=== PATIENT | female | born 2000 | race Caucasian/White ===

== ENCOUNTER 2019-07-26 02:50 | Outpatient (CLI) | payer OTHER ==
[2019-07-26 03:23] LABS: APPEARANCE,URINE CLOUDY; BILIRUBIN,URINE NEGATIVE (NEGATIVE); COLOR,URINE YELLOW; GLUCOSE, URINE NEGATIVE (NEGATIVE); KETONES,URINE NEGATIVE (NEGATIVE); LEUKOCYTE ESTERASE,URINE LARGE (NEGATIVE); NITRITE,URINE NEGATIVE (NEGATIVE); PROTEIN,URINE NEGATIVE (NEGATIVE); URINE SPECIFIC GRAVITY 1.016; UROBILINOGEN,URINE NEGATIVE mg/dL (<2.0)
[2019-07-26 03:36] LABS: URINE AMPHETAMINES SCREEN NEGATIVE; URINE BARBITURATES SCREEN NEGATIVE; URINE BENZODIAZEPINES SCREEN NEGATIVE; URINE COCAINE SCREEN NEGATIVE; URINE MARIJUANA (THC) SCREEN NEGATIVE; URINE METHADONE SCREEN NEGATIVE; URINE PHENCYCLIDINE SCREEN NEGATIVE
== END 2019-07-26 03:52 | disposition home or self-care (01) ==
LOC: LC 02:50
PROVIDERS: ATTEND Obstetrics & Gynecology
DX: Z34.93 Encounter for supervision of normal pregnancy, unspecified, third trimester (principal); Z3A.37 37 weeks gestation of pregnancy
CPT/HCPCS: 59025; 80307; 81005; 84112

== ENCOUNTER 2019-08-01 04:14 | Outpatient (CLI) | payer OTHER ==
[2019-08-01 05:23] LABS: APPEARANCE,URINE TURBID; BILIRUBIN,URINE NEGATIVE (NEGATIVE); COLOR,URINE YELLOW; GLUCOSE, URINE NEGATIVE (NEGATIVE); KETONES,URINE NEGATIVE (NEGATIVE); LEUKOCYTE ESTERASE,URINE LARGE (NEGATIVE); NITRITE,URINE NEGATIVE (NEGATIVE); PROTEIN,URINE 30 mg/dL (NEGATIVE); URINE SPECIFIC GRAVITY 1.012; UROBILINOGEN,URINE NEGATIVE mg/dL (<2.0)
[2019-08-01 05:39] LABS: URINE AMPHETAMINES SCREEN NEGATIVE; URINE BARBITURATES SCREEN NEGATIVE; URINE BENZODIAZEPINES SCREEN NEGATIVE; URINE COCAINE SCREEN NEGATIVE; URINE MARIJUANA (THC) SCREEN NEGATIVE; URINE METHADONE SCREEN NEGATIVE; URINE PHENCYCLIDINE SCREEN NEGATIVE
[2019-08-01] MEDS ORDERED: CEFTRIAXONE INJ 1000 MG VIAL ONE (06:09)
[2019-08-01] MEDS ORDERED: LIDOCAINE 1% INJ-PF (10 MG/ML) 30 ML SDV ONE (06:10)
--- NOTE | 2019-08-01 06:40 | Non Stress Test Report ---
Non Stress Test Datetime Report Generated by CPN: 08/01/2019 06:40 DEMOGRAPHIC EGA NST: 37.6 INDICATION Indication for Study (NST) Other: Labor check MONITORING Monitor Explained: Monitor Explained; Test Explained; Patient Verbalized Understanding Time on Monitor: 08/01/2019 04:50 Time off Monitor: 08/01/2019 06:15 NST Duration: 85 NST INTERVENTIONS NST Interventions: PO Hydration Physician Notified NST: Dr. Hackett BABY A Movement : Present Contraction Frequency : 1-2 FHR Baseline : 140 Accelerations : 15X15 Decelerations : None Variability : Moderate 6-25bpm NST Review: Meets Criteria for Reactive NST NST Review and Verified By : ZAC Bales NST Results: Reactive NST REPORT Report Trigger: Send Report
== END 2019-08-01 06:33 | disposition home or self-care (01) ==
LOC: LC 04:14
PROVIDERS: ATTEND Obstetrics & Gynecology
DX: O47.1 False labor at or after 37 completed weeks of gestation (principal); Z3A.37 37 weeks gestation of pregnancy
CPT/HCPCS: 59025; 81005; 80307; J3490; J0696

== ENCOUNTER 2019-08-01 08:34 | Outpatient (CLI) | payer OTHER ==
[2019-08-01] MEDS ORDERED: HYDROXYZINE PAMOATE 50 MG CAPSULE PO ONE (09:30)
[2019-08-01] MEDS ORDERED: HYDROXYZINE PAMOATE 50 MG CAPSULE ONE (09:37)
--- NOTE | 2019-08-01 09:49 | Non Stress Test Report ---
Non Stress Test Datetime Report Generated by CPN: 08/01/2019 09:48 DEMOGRAPHIC EGA NST: 37.6 INDICATION Indication for Study (NST) Other: Provider Order VITAL SIGNS Temperature - NST: 97.2 Pulse - NST: 70 RESP - NST: 18 NBPSYS NST: 107 NBPDIA NST: 55 MONITORING Time on Monitor: 08/01/2019 08:46 Time off Monitor: 08/01/2019 09:29 NST Duration: 43 NST INTERVENTIONS NST Interventions: None Physician Notified NST: NRobertson,CNM BABY A Movement : Present Contraction Frequency : Irregular FHR Baseline : 135 Accelerations : 15X15 Decelerations : None Variability : Moderate 6-25bpm NST Review: Meets Criteria for Reactive NST NST Review and Verified By : [place] NST Results: Reactive NST REPORT Report Trigger: Send Report
== END 2019-08-01 09:42 | disposition home or self-care (01) ==
LOC: LC 08:34
PROVIDERS: ATTEND Student in an Organized Health Care Education/Training Program
DX: O47.1 False labor at or after 37 completed weeks of gestation (principal); Z3A.37 37 weeks gestation of pregnancy
CPT/HCPCS: 59025

== ENCOUNTER 2019-08-04 22:21 | Inpatient (IN) | payer OTHER ==
[2019-08-04 22:48] LABS: APPEARANCE,URINE CLOUDY; BILIRUBIN,URINE NEGATIVE (NEGATIVE); COLOR,URINE YELLOW; GLUCOSE, URINE NEGATIVE (NEGATIVE); KETONES,URINE NEGATIVE (NEGATIVE); LEUKOCYTE ESTERASE,URINE LARGE (NEGATIVE); NITRITE,URINE NEGATIVE (NEGATIVE); PROTEIN,URINE 30 mg/dL (NEGATIVE); URINE SPECIFIC GRAVITY 1.011; UROBILINOGEN,URINE NEGATIVE mg/dL (<2.0)
[2019-08-04 23:10] LABS: URINE AMPHETAMINES SCREEN NEGATIVE; URINE BARBITURATES SCREEN NEGATIVE; URINE BENZODIAZEPINES SCREEN NEGATIVE; URINE COCAINE SCREEN NEGATIVE; URINE MARIJUANA (THC) SCREEN NEGATIVE; URINE METHADONE SCREEN NEGATIVE; URINE PHENCYCLIDINE SCREEN NEGATIVE
[2019-08-04] MEDS ORDERED: RINGERS SOLUTION,LACTATED 1,000 ML IV PRN (23:54)
[2019-08-05 00:24] LABS: ABSOLUTE BASOPHILS # (AUTO) 0.1 10^3/uL (0.0-0.2); ABSOLUTE EOSINOPHILS # (AUTO) 0.1 10^3/uL (0.0-0.6); ABSOLUTE MONOCYTES (AUTO) 0.7 10^3/uL (0.1-1.4); ABSOLUTE NEUT (AUTO) 11.8 10^3/uL (1.7-8.2); BASOPHILS % (AUTO) 0.4 % (0-2); EOSINOPHILS % (AUTO) 0.4 % (0-6); HEMATOCRIT 35.8 % (36.0-47.0); HEMOGLOBIN 11.9 g/dL (12.0-15.5); LYMPHOCYTES % (AUTO) 13.6 % (13-45); MEAN CORPUSCULAR HEMOGLOBIN 27.9 pg (27.0-33.4); MEAN CORPUSCULAR HGB CONC 33.1 g/dL (32.0-36.0); MEAN CORPUSCULAR VOLUME 84 fl (80-97); MONOCYTES % (AUTO) 4.6 % (3-13); PLATELET COUNT 193 10^3/uL (150-450); RED BLOOD COUNT 4.24 10^6/uL (3.72-5.28); RED CELL DISTRIBUTION WIDTH 14.3 % (11.5-14.0); TOTAL CELLS COUNTED % (AUTO) 100 %; WHITE BLOOD COUNT 14.6 10^3/uL (4.0-10.5)
[2019-08-05] MEDS ORDERED: RINGERS SOLUTION,LACTATED 1,000 ML IV ONE (00:30)
[2019-08-05] MEDS ORDERED: BUPIVACAINE HCL 0.25 % INJ/PF (2.5 MG/1 ML) 30 ML VIAL ONE (00:58)
[2019-08-05] MEDS ORDERED: EPHEDRINE SULFATE INJ 50 MG/1 ML AMPULE ONE (00:58)
[2019-08-05] MEDS ORDERED: FENTANYL/BUPIVACAINE/NS/PF 300 MCG/150 ML RTUINJ EPI ONE (00:58)
--- NOTE | 2019-08-05 01:07 | Admission Physical ---
Datetime Report Generated by CPN: 08/05/2019 01:07 CURRENT ADMISSION Chief Complaint: Uterine Contractions Indication for Induction: Not Applicable Admit Impression : Term, Intrauterine ; Active Labor Admit Plan: Admit to Unit; Initiate Labor Protocol ALLERGIES Medication Allergies: No Medication Allergies: No Known Allergies (08/01/2019) Latex: No Latex Allergies OBSTETRICAL HISTORY EDC: 08/16/2019 00:00 : 3 Para: 1 Livin Gestational Diabetes: No Rh Sensitization: No Incompetent Cervix: No TAE: No Infertility: No ART Treatment: No Uterine Anomaly: No IUGR: No Hx Previous C/S: No Macrosomia: No Hx Loss/Stillborn: No PIH: No Hx : No Placenta Previa/Abruption: No Depression/PP Depression: No PTL/PROM: No Post Hemorrhage: No Current Procedures: Ultrasound; NST Obstetrical History Comments: G1- SAB G2- at 37 weeks G3- current SEE RECORDS Alcohol: No Marijuana : No Cocaine: No Other Illicit Drugs: No Cigarettes: Never Smoker. 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 Surgery: No Heart Disease: No Hosp/Surgery: No Autoimmune Disorder: No Anesthetic Complications: No Kidney Disease: No Abnormal Pap Smear: No Neuro/Epilepsy: No Psychiatric Disorders: No Other Medical Diseases: No Hepatitis/Liver Disease: No Significant Family History: No Varicosities/Phlebitis: No Trauma/Violence : No Thyroid Dysfunction: No INFECTIOUS HISTORY Gonorrhea: No Genital Herpes: No Chlamydia: No Tuberculosis: No Syphilis: No Hepatitis: No HIV/AIDS Exposure: No Rash or Viral Illness: No HPV: No PHYSICAL EXAM General: Normal HEENT: Normal Neurologic: Normal Thyroid: Normal Heart: Normal Lungs: Normal Breast: Deferred Back: Normal Abdomen: Normal Genitourinary Exam: Normal Extremities: Normal DTRs: Normal Pelvic Type: Adequate Vital Signs: Reviewed VAGINAL EXAM Dilatation: 4 Effacement: 80 Station: -2 MEMBRANES Pooling: Negative Membranes: Intact FETUS A EGA: 38.3 Monitoring: External US FHR- Baseline: 140 Variability: Moderate 6-25bpm FHR Category: Category I Presentation: Vertex Admit Comment: Admit for labor PLANS FOR LABOR AND DELIVERY Labor and Delivery: None Pain Management: Epidural INFORMED CONSENT Signature: with User ID: [email or web address]
[2019-08-05] MEDS ORDERED: FENTANYL CITRATE INJ/PF 100 MCG/2 ML AMPUL ONE (01:45)
[2019-08-05] MEDS ORDERED: LIDOCAINE 1% INJ-PF (10 MG/ML) 30 ML SDV ONE (02:26)
[2019-08-05] MEDS ORDERED: OXYTOCIN 10 UNIT/ML VIAL ONE (02:26)
[2019-08-05] MEDS ORDERED: MISOPROSTOL 0.2 MG TABLET ONE (02:26)
[2019-08-05] MEDS ORDERED: OXYTOCIN/0.9 % SODIUM CHLORIDE 30 UNIT/500 ML RTUINJ ONE (02:27)
[2019-08-05] MEDS ORDERED: DIBUCAINE 1% OINTMENT 28 GM TP PRN (02:57)
[2019-08-05] MEDS ORDERED: DIPHENHYDRAMINE HCL 25 MG CAPSULE PO PRN (02:57)
[2019-08-05] MEDS ORDERED: DIPH/PERTUSS(ACELL)/TETANUS VAC/PF 0.5 ML SYR (>=10YO) IM PRN (02:57)
[2019-08-05] MEDS ORDERED: BENZOCAINE/MENTHOL AEROSOL SPRAY 56 ML TOP PRN (02:57)
[2019-08-05] MEDS ORDERED: GLYCERIN/WITCH HAZEL LEAF 1 EACH MED..WIPE TP PRN (02:57)
[2019-08-05] MEDS ORDERED: OXYTOCIN/0.9 % SODIUM CHLORIDE 30 UNIT/500 ML RTUINJ IV PRN (02:57)
[2019-08-05] MEDS ORDERED: ACETAMINOPHEN 650 MG SUPP.RECT PR PRN (02:57)
[2019-08-05] MEDS ORDERED: PSEUDOEPHEDRINE HCL 30 MG TABLET PO PRN (02:57)
[2019-08-05] MEDS ORDERED: PROMETHAZINE HCL INJ 25 MG/1 ML VIAL IV PRN (02:57)
[2019-08-05] MEDS ORDERED: PROMETHAZINE HCL 25 MG TABLET PO PRN (02:57)
[2019-08-05] MEDS ORDERED: MEASLES,MUMPS&RUBELLA VACC/PF 0.5 ML VIAL SUBCUT PRN (02:57)
[2019-08-05] MEDS ORDERED: ACETAMINOPHEN WITH CODEINE #3 TABLET PO PRN ×2 (02:57)
[2019-08-05] MEDS ORDERED: MAGNESIUM HYDROXIDE SUSP 30 ML UDCUP PO PRN (02:57)
[2019-08-05] MEDS ORDERED: NA PHOS,M-B/NA PHOS,DI-BA (ADULT) 133 ML ENEMA PR PRN (02:57)
[2019-08-05] MEDS ORDERED: ZOLPIDEM TARTRATE 5 MG TABLET PO PRN (02:57)
[2019-08-05] MEDS ORDERED: PROMETHAZINE HCL 25 MG SUPP.RECT PR PRN (02:57)
--- NOTE | 2019-08-05 03:26 | Warning Signs in Babies ---
VOD Warning Signs Datetime Report Generated by [facility]: 08/05/2019 03:26 VOD#[id number] -Warning Signs in Babies: Viewed with Parent(s)/Family (07/26/2019 02:56:MACKENZIE Barrientos)
--- NOTE | 2019-08-05 05:23 | Delivery Summary ---
Del Sum A-C Datetime Report Generated by CPN: 08/05/2019 05:23 DELIVERY PERSONNEL DELIVERY PERSONNEL: [id number] Delivery Doctor:: Mary Tejada CNM Labor and Delivery Nurse:: Izabela Cainbarbarageo, MACKENZIE MATERNAL INFORMATION Delivery Anesthesia: Epidural Medications After Delivery: Pitocin 30 Units in 500ml NS/D5W Estimated Blood Loss (ml): 100 Delivery QBL: 101 Maternal Complications: None Provider Comments: AROM clear fluid, started pushing, viable male from OA to LAURENCE over intact perineum, baby placed on mothers abdomen, cord clamped and cut by father, cord blood to lab Spont delivery of grossly nl intact placenta, 3 VS, no lacerations Baby and mom remain in recovery in stable condition FFFM, massage and Pitocin ZDr. Martinez on unit and aware of delivery and pt status LABOR SUMMARY EDC: 08/16/2019 00:00 No. Babies in Womb: 1 Attempted: No Labor Anesthesia: Epidural LABOR INFORMATION Reason for Induction: Not Applicable Onset of Labor: 08/04/2019 23:50 Complete Dilatation: 08/05/2019 02:30 Oxytocin: N/A Group B Beta Strep: negative Antibiotics # of Doses: 0 Antibiotics Time of Last Dose: 0 Name of Antibiotic Given: 0 Steroids Given: None Reason Steroids Not Administered: Not Applicable MEMBRANES Membranes Rupture Method: Artificial Rupture of Membranes: 08/05/2019 02:30 Length of Rupture (hr): 0.50 Amniotic Fluid Color: Clear Amniotic Fluid Amount: Small Amniotic Fluid Odor: None STAGES OF LABOR Stage 1 hr: 2 Stage 1 min: 40 Stage 2 hr: 0 Stage 2 min: 30 Stage 3 hr: 0 Stage 3 min: 9 Total Time in Labor hr: 3 Total Time in Labor min: 19 VAGINAL DELIVERY Episiotomy: None Laceration #1: None Laceration Extension #1: N/A Laceration Repair: Not Applicable Sponge Count Correct: N/A Sharps Count Correct: N/A BABY A INFORMATION Infant Delivery Date/Time: 08/05/2019 03:00 Method of Delivery: Vaginal Nurse Controlled Delivery: No Born in Route : No : N/A Forceps: N/A Vacuum Extraction: N/A Shoulder Dystocia : No PRESENTATION/POSITION BABY A Presentation: Cephalic Cephalic Presentation: Vertex Vertex Position: Right Occipital Anterior Breech Presentation: N/A PLACENTA INFORMATION BABY A Placenta Delivery Time : 08/05/2019 03:09 Placenta Method of Delivery: Spontaneous Placenta Status: Delivered SCORES BABY A Heart Rate 1 min: >100 bpm Resp Effort 1 min: Good Cry Reflex Irritability 1 min: Cough or Sneeze or Pulls Away Muscle Tone 1 min: Active Motion Color 1 min: Body [place], Extremities Blue Resuscitation Effort 1 min: Tactile Stimulation SCORE 1 MIN: 9 Heart Rate 5 min: >100 bpm Resp Effort 5 min: Good Cry Reflex Irritability 5 min: Cough or Sneeze or Pulls Away Muscle Tone 5 min: Active Motion Color 5 min: Body [place], Extremities Blue Resuscitation Effort 5 min: Tactile Stimulation SCORE 5 MIN: 9 INFORMATION BABY A Gestational Age at Delivery: 38.3 Gestational Status: Early Term- 37- 38.6 Weeks Infant Outcome : Liveborn Infant Condition : Stable Infant Sex: Male IDENTIFICATION BABY A Infant Verification Date/Time: 08/05/2019 03:31 ID Band Number: [id number] Mother's Name Verified: Yes Infant RN Verifying : Corinne ZAC Butler Additional Verifying Personnel: Corinne Platt RN CORD INFORMATION BABY A No. Cord Vessels: 3 Nuchal Cord : N/A Cord Blood Taken: Yes-For Eval (Mom's Blood Type - or O+) Infant Suction: None ASSESSMENT BABY A Complications: None Physical Findings at Delivery: Within Normal Limits Respirations: Appears Normal Skin to Skin: Yes Skin to Skin Time (min): 30 Rn Womens Health/ALS Called : No Care By: Tyrell Ambriz RN Transferred To: Remains with Mother BABY B INFORMATION : N/A
[2019-08-05] MEDS: IBUPROFEN 800 MG TABLET PO SCH ×3 (06:08→22:00)
[2019-08-05] MEDS: DOCUSATE SODIUM 100 MG CAPSULE PO SCH ×2 (09:22→18:08)
[2019-08-05] MEDS: PRENATAL VITAMIN W DHA CAPSULE PO SCH (09:22)
[2019-08-05] MEDS: FAMOTIDINE 20 MG TABLET PO SCH ×2 (09:22→22:01)
[2019-08-05] MEDS: FERROUS SULFATE 325 MG TABLET PO SCH ×2 (09:22→18:08)
[2019-08-05] MEDS: SENNOSIDES/DOCUSATE 8.6-50 MG 1 EACH TABLET PO SCH (09:22)
[2019-08-06] MEDS: IBUPROFEN 800 MG TABLET PO SCH ×3 (07:34→21:41)
[2019-08-06 07:59] LABS: HEMATOCRIT 32.7 % (36.0-47.0); HEMOGLOBIN 11.1 g/dL (12.0-15.5); MEAN CORPUSCULAR HEMOGLOBIN 28.7 pg (27.0-33.4); MEAN CORPUSCULAR VOLUME 85 fl (80-97); PLATELET COUNT 174 10^3/uL (150-450); RED BLOOD COUNT 3.87 10^6/uL (3.72-5.28); RED CELL DISTRIBUTION WIDTH 14.2 % (11.5-14.0); WHITE BLOOD COUNT 10.4 10^3/uL (4.0-10.5)
[2019-08-06] MEDS: FERROUS SULFATE 325 MG TABLET PO SCH ×2 (10:37→17:44)
[2019-08-06] MEDS: PRENATAL VITAMIN W DHA CAPSULE PO SCH (10:37)
[2019-08-06] MEDS: DOCUSATE SODIUM 100 MG CAPSULE PO SCH ×2 (10:37→17:45)
[2019-08-06] MEDS: SENNOSIDES/DOCUSATE 8.6-50 MG 1 EACH TABLET PO SCH (10:37)
[2019-08-06] MEDS: FAMOTIDINE 20 MG TABLET PO SCH ×2 (10:37→21:41)
--- NOTE | 2019-08-06 10:44 | PDOC PROGRESS REPORT ---
Subjective-OB Progress Note for:: 08/06/19 Physical Exam (OB) Vital Signs: Temp Pulse Resp BP Pulse Ox 97.6 F 67 18 130/81 H 98 08/06/19 08:00 08/06/19 08:00 08/06/19 08:00 08/06/19 08:00 08/06/19 08:00 Intake & Output 08/05/19 08/06/19 08/07/19 06:59 06:59 06:59 Intake Total 680 Balance 680 Weight 70.3 kg - PIH/Pre-Eclampsia DTR's: 2 + Clonus: Negative Headache: Absent Epigastric Pain: No Visual Changes: No - Lochia Lochia Amount: Scant < 10 ml Lochia Color: Rubra/Red - Abdomen Description: Soft, Round Hernia Present: No Bowel Sounds: Normoactive Flatus Presence: Present Stool: Yes Fundal Description: Firm, Midline Fundal Height: u/u - u/2 Objective-Diagnostic Laboratory: 08/06/19 07:30 08/06/19 07:30 WBC 10.4 RBC 3.87 Hgb 11.1 L Hct 32.7 L MCV 85 MCH 28.7 MCHC 34.0 RDW 14.2 H Plt Count 174
[2019-08-07] MEDS: IBUPROFEN 800 MG TABLET PO SCH (05:06)
[2019-08-07 08:00] VITALS: BP 128/82
--- NOTE | 2019-08-07 09:32 | PDOC DISCHARGE SUMMARY ---
Impression - Admit/DC Date/PCP Admission Date/Primary Care Provider: 08/04/19 23:55 ROHIT MAR MD Discharge Date: 08/07/19 - Discharge Diagnosis (1) Normal course Is this a current diagnosis for this admission?: Yes (2) Delivery normal Is this a current diagnosis for this admission?: Yes (3) Is this a current diagnosis for this admission?: Yes - Additional Information Resuscitation Status: Full Code Discharge Diet: Regular Discharge Activity: Balance Activity w/Rest, Pelvic Rest Referrals: ROHIT MAR MD [Primary Care Provider] - Prescriptions: Ibuprofen [Motrin 800 mg Tablet] 800 mg PO Q8HP PRN #60 tablet PRN Reason: Home Medications: Prenat 115/Iron Fum/Folic/Dss [ 19 Tablet] 1 tab PO DAILY 07/26/19 Ferrous Gluconate [Iron] 240 mg PO DAILY 08/01/19 Ibuprofen [Motrin 800 mg Tablet] 800 mg PO Q8HP PRN #60 tablet 08/07/19 HPI Gestational Age: 38.3 Reason(s) for Admission: Onset of Labor Procedures: NST Intrapartum Procedure(s): Spontaneous Vaginal Delivery Results Laboratory Results: WBC 10.4 10^3/uL (4.0-10.5) 08/06/19 07:30 RBC 3.87 10^6/uL (3.72-5.28) 08/06/19 07:30 Hgb 11.1 g/dL (12.0-15.5) L 08/06/19 07:30 Hct 32.7 % (36.0-47.0) L 08/06/19 07:30 MCV 85 fl (80-97) 08/06/19 07:30 MCH 28.7 pg (27.0-33.4) 08/06/19 07:30 MCHC 34.0 g/dL (32.0-36.0) 08/06/19 07:30 RDW 14.2 % (11.5-14.0) H 08/06/19 07:30 Plt Count 174 10^3/uL (150-450) 08/06/19 07:30 Lymph % (Auto) 13.6 % (13-45) 08/05/19 00:04 [place] % (Auto) 4.6 % (3-13) 08/05/19 00:04 Eos % (Auto) 0.4 % (0-6) 08/05/19 00:04 Baso % (Auto) 0.4 % (0-2) 08/05/19 00:04 Absolute Neuts (auto) 11.8 10^3/uL (1.7-8.2) H 08/05/19 00:04 Absolute Lymphs (auto) 2.0 10^3/uL (0.5-4.7) 08/05/19 00:04 Absolute Monos (auto) 0.7 10^3/uL (0.1-1.4) 08/05/19 00:04 Absolute Eos (auto) 0.1 10^3/uL (0.0-0.6) 08/05/19 00:04 Absolute Basos (auto) 0.1 10^3/uL (0.0-0.2) 08/05/19 00:04 Seg Neutrophils % 81.0 % (42-78) H 08/05/19 00:04 Urine Color YELLOW 08/04/19 22:29 Urine Appearance CLOUDY 08/04/19 22:29 Urine pH 8.0 (5.0-9.0) 08/04/19 22:29 Ur Specific [place] 1.011 08/04/19 22:29 Urine Protein 30 mg/dL (NEGATIVE) H 08/04/19 22:29 Urine Glucose (UA) NEGATIVE mg/dL (NEGATIVE) 08/04/19 22:29 Urine Ketones NEGATIVE mg/dL (NEGATIVE) 08/04/19 22:29 Urine Blood LARGE (NEGATIVE) H 08/04/19 22:29 Urine Nitrite NEGATIVE (NEGATIVE) 08/04/19 22:29 Urine Bilirubin NEGATIVE (NEGATIVE) 08/04/19 22:29 Urine Urobilinogen NEGATIVE mg/dL (<2.0) 08/04/19 22:29 Ur Leukocyte Esterase LARGE (NEGATIVE) H 08/04/19 22:29 Urine Ascorbic Acid NEGATIVE (NEGATIVE) 08/04/19 22:29 Urine Opiates Screen NEGATIVE 08/04/19 22:29 Urine Methadone Screen NEGATIVE 08/04/19 22:29 Ur Barbiturates Screen NEGATIVE 08/04/19 22:29 Ur Phencyclidine Scrn NEGATIVE 08/04/19 22:29 Ur Amphetamines Screen NEGATIVE 08/04/19 22:29 U Benzodiazepines Scrn NEGATIVE 08/04/19 22:29 Urine Cocaine Screen NEGATIVE 08/04/19 22:29 U Marijuana (THC) Screen NEGATIVE 08/04/19 22:29 RPR NONREACTIVE (NONREACTIVE) 08/05/19 00:04 Blood Type O POSITIVE 08/05/19 00:04 Antibody Screen NEGATIVE 08/05/19 00:04 Plan Plan of Treatment: f/u at [facility] 4 wks for PPCK Time Spent: Less than 30 Minutes
[2019-08-07] MEDS: SENNOSIDES/DOCUSATE 8.6-50 MG 1 EACH TABLET PO SCH (09:36)
[2019-08-07] MEDS: PRENATAL VITAMIN W DHA CAPSULE PO SCH (09:36)
[2019-08-07] MEDS: FERROUS SULFATE 325 MG TABLET PO SCH (09:36)
[2019-08-07] MEDS: FAMOTIDINE 20 MG TABLET PO SCH (09:36)
[2019-08-07] MEDS: DOCUSATE SODIUM 100 MG CAPSULE PO SCH (09:36)
== END 2019-08-07 13:25 | disposition home or self-care (01) | DRG 807 ==
LOC: LC 22:21 → LR 23:55 → 2S 08-05 05:50
PROVIDERS: ADMIT Obstetrics & Gynecology; ATTEND Obstetrics & Gynecology
PROC: 10E0XZZ Delivery of Products of Conception, External Approach (ICD-10-PCS; principal; 2019-08-04)
PROC: 10907ZC Drainage of Amniotic Fluid, Therapeutic from Products of Conception, Via Natural or Artificial Opening (ICD-10-PCS; 2019-08-04)
DX: O80 Encounter for full-term uncomplicated delivery (principal); Z37.0 Single live birth; Z3A.38 38 weeks gestation of pregnancy
CPT/HCPCS: 1967; 36415; 80307; 81005; 85025; 85027; 86592; 86850; 86900; 86901; 94760; J2590; J3010; J3490